=== PATIENT | male | born 1940 | race Two or more races ===

== ENCOUNTER → 2017-03-25 | Outpatient (CLI) | payer MEDICARE ==
--- NOTE | 2017-03-30 09:21 | PCVCIMAG ---
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 Time: 172.30 ms MV E Max David.: 0.86 m/s MV A David.: 0.30 m/s IVRT: 121.11 ms Pulmonary Valve PV Peak David.: 0.71 m/sPV Peak Gr.: 2.04 mmHg Pulmonary Vein P Vein S: 0.40 m/sP Vein A: 0.29 m/s P Vein D: 0.56 m/sP Vein A Dur.: 79.6 msec P Vein S/D Ratio: 0.71 Tricuspid Valve TR Peak David.: 3.10 m/s TR Peak Gr.: 38.47 mmHg TV Vmax: 0.61 m/s Left Ventricle The left ventricle is normal size. 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 There is normal left ventricular wall thickness. The left ventricular systolic function is normal. The left ventricular ejection fraction is low normal. LVEF is 50-55%. Right Ventricle The right ventricle is normal size. The right ventricular systolic function is normal. Atria Left atrium is severely dilated. The interatrial septum is intact with no evidence for an atrial septal defect. Right atrium is severely dilated. Aortic Valve The aortic valve is normal in structure. No aortic regurgitation is present. There is no aortic valvular stenosis. Mitral Valve The mitral valve is normal in structure. Moderate mitral regurgitation. Mitral regurgitation jet is eccentrically directed. No evidence of mitral valve stenosis. Tricuspid Valve The tricuspid valve is normal in structure. Moderate to severe tricuspid regurgitation with a PA pressure of 45mmHg. Pulmonic Valve The pulmonary valve is normal in structure. Trace pulmonic regurgitation. Great Vessels The aortic root is normal in size. The ascending aorta is normal in size. IVC is normal in size and collapses >50% with inspiration. Pericardium There is no pericardial effusion. There is no pleural effusion. Critical Notification Critical Value: No <Conclusion> The left ventricle is normal size. There is normal left ventricular wall thickness. The left ventricular systolic function is normal. The left ventricular ejection fraction is low normal. LVEF is 50-55%. The right ventricle is normal size. Left atrium is severely dilated. The aortic valve is normal in structure. The mitral valve is normal in structure. The mitral valve is normal in structure. The tricuspid valve is normal in structure. Moderate to severe tricuspid regurgitation with a PA pressure of 45mmHg. IVC is normal in size and collapses >50% with inspiration. There is no pericardial effusion.
== END | disposition home or self-care (01) ==
LOC: PCVCIMAG 09:09
PROVIDERS: ATTEND Internal Medicine Cardiovascular Disease
DX: I10 Essential (primary) hypertension (principal); I25.10 Atherosclerotic heart disease of native coronary artery without angina pectoris; E78.00 Pure hypercholesterolemia, unspecified; I25.5 Ischemic cardiomyopathy; I42.9 Cardiomyopathy, unspecified; I08.1 Rheumatic disorders of both mitral and tricuspid valves; Z79.82 Long term (current) use of aspirin; Z79.899 Other long term (current) drug therapy
CPT/HCPCS: 80061; 93005; 93306; G0463

== ENCOUNTER → 2018-03-29 | Outpatient (CLI) | payer MEDICARE | END | disposition home or self-care (01) | LOC: PCVCIMAG 12:26 | DX: I25.10 Atherosclerotic heart disease of native coronary artery without angina pectoris (principal); I25.2 Old myocardial infarction; I10 Essential (primary) hypertension; E78.5 Hyperlipidemia, unspecified; I25.5 Ischemic cardiomyopathy; I34.0 Nonrheumatic mitral (valve) insufficiency | CPT/HCPCS: 93325; 93351 ==

== ENCOUNTER → 2019-01-18 | Outpatient (CLI) | payer MEDICARE | END | disposition home or self-care (01) | LOC: PCVCCLINIC 11:23 | PROVIDERS: ATTEND Internal Medicine Cardiovascular Disease | DX: I25.10 Atherosclerotic heart disease of native coronary artery without angina pectoris (principal); I25.5 Ischemic cardiomyopathy; E78.00 Pure hypercholesterolemia, unspecified; I10 Essential (primary) hypertension; Z88.4 Allergy status to anesthetic agent | CPT/HCPCS: 36415; 80061; 93005; G0463 ==